=== PATIENT | male | born 1995 | race Caucasian/White ===

== ENCOUNTER 2018-11-20 20:51 | Emergency (ER) | payer SELFPAY ==
[~2018-11-20] VITALS: Ht 182.9 cm; Wt 86.5 kg
[~2018-11-20 20:51] MED LIST: ACET325T33 PO; IBUP800T48 PO
[2018-11-20 20:53] VITALS: BP 154/96; PULSE 79; RESP 18; Ht 182.9 cm; Wt 86.5 kg
== END 2018-11-20 22:29 | disposition left against medical advice (07) ==
LOC: E/R 20:51
DX: Z53.21 Procedure and treatment not carried out due to patient leaving prior to being seen by health care provider (principal)